=== PATIENT | male | born 1945 | race Caucasian/White ===

== ENCOUNTER 2019-05-03 09:37 | Outpatient (CLI) | payer MEDICARE, BC ==
[~2019-05-03 09:37] MED LIST: AMLO2.5T2 PO; ATOR40TA PO; CLOP75TA8 PO; DIGE1TAB PO; FLUT16SP2 BOTHNARES; MULT-1085 PO; TIMO5DRO4 RIGHTEYE; VIBE PO; VOLTAREN GEL TOP
[2019-05-03] MEDS ORDERED: LISI10TA4 PO (10:33)
[2019-05-03] MEDS ORDERED: DICL100G15 TOP (10:33)
[2019-05-03] MEDS ORDERED: AMLO10TA13 PO (10:34)
[2019-05-03] MEDS ORDERED: ATOR20TA66 PO (10:34)
== END 2019-05-03 23:59 | disposition home or self-care (01) ==
LOC: 64 CT 09:37
PROVIDERS: ATTEND Orthopaedic Surgery
DX: M47.814 Spondylosis without myelopathy or radiculopathy, thoracic region (principal); K44.9 Diaphragmatic hernia without obstruction or gangrene; R91.1 Solitary pulmonary nodule
CPT/HCPCS: 71250